=== PATIENT | female | born 1970 | race Hispanic/Latino ===

== ENCOUNTER 2020-09-06 20:42 | Emergency (ER) | payer MEDICAID, SELFPAY ==
[~2020-09-06 20:42] MED LIST: DICY20TA3 PO; TYL4 GT
[2020-09-06] MEDS ORDERED: ACETAMINOPHEN WITH CODEINE 1 TAB TAB ONE (21:06)
[2020-09-06] MEDS ORDERED: CLINDAMYCIN 150 MG CAP ONE (21:06)
== END 2020-09-06 21:26 | disposition home or self-care (01) ==
LOC: EDH 20:42
DX: S02.5XXA Fracture of tooth (traumatic), initial encounter for closed fracture (principal); K02.9 Dental caries, unspecified; R51.9 Headache, unspecified; Z88.0 Allergy status to penicillin; Z88.1 Allergy status to other antibiotic agents; Z88.6 Allergy status to analgesic agent; Z88.8 Allergy status to other drugs, medicaments and biological substances; X58.XXXA Exposure to other specified factors, initial encounter; Y93.89 Activity, other specified; Y92.89 Other specified places as the place of occurrence of the external cause; Y99.8 Other external cause status